=== PATIENT | female | born 1995 | race Caucasian/White ===

== ENCOUNTER 2018-01-11 20:29 | Emergency (ER) | payer MEDICAID, OTHER ==
[2018-01-11] MEDS ORDERED: TETANUS/DIPHTHERIA TOXOID [ADULT] 0.5 ML VIAL IM ONE (20:54)
[2018-01-11] MEDS ORDERED: OCTYL 2-CYANOACRYLATE 1 EACH TP ONE (20:54)
[2018-01-11] MEDS ORDERED: ACETAMINOPHEN EXTRA STRENGTH 500 MG TABLET ONE (21:51)
== END 2018-01-11 21:58 | disposition home or self-care (01) ==
LOC: EDH 20:29
DX: S61.214A Laceration without foreign body of right ring finger without damage to nail, initial encounter (principal); Z72.0 Tobacco use; W26.0XXA Contact with knife, initial encounter; Y93.89 Activity, other specified; Y92.89 Other specified places as the place of occurrence of the external cause; Y99.8 Other external cause status
CPT/HCPCS: 12041; 90471; 90714

== ENCOUNTER 2018-03-23 19:50 | Emergency (ER) | payer OTHER ==
[2018-03-23 20:23] LABS: APPEARANCE,URINE SL CLOUDY (CLEAR); BILIRUBIN,URINE SMALL (NEGATIVE); COLOR,URINE YELLOW (YELLOW); GLUCOSE, URINE (UA) NEGATIVE (NEGATIVE); KETONES,URINE NEGATIVE (NEGATIVE); LEUKOCYTE ESTERASE ,URINE TRACE (NEGATIVE); NITRATE,URINE NEGATIVE (NEGATIVE); OCCULT BLOOD,URINE LARGE (NEGATIVE); PH,URINE 7.5 (5.0-8.0); PROTEIN,URINE 100 (NEGATIVE)
[2018-03-23 20:33] LABS: BACTERIA,URINE Few /HPF (None Seen); MUCUS,URINE Moderate LPF (None Seen); SQUAMOUS EPITHELIAL CELL,UR Many /HPF (0-2)
[2018-03-23 20:34] LABS: HCG,QUAL RESULT NEGATIVE (NEGATIVE)
[2018-03-23] MEDS ORDERED: IBUPROFEN 400 MG TABLET ONE (20:52)
== END 2018-03-23 21:23 | disposition home or self-care (01) ==
LOC: EDH 19:50
DX: N39.0 Urinary tract infection, site not specified (principal); N83.299 Other ovarian cyst, unspecified side; Z72.0 Tobacco use
CPT/HCPCS: 81001; 81025

== ENCOUNTER 2019-08-22 18:04 | Inpatient (IN) | payer MEDICAID ==
[~2019-08-22] VITALS: Ht 152.4 cm; Wt 62.6 kg
[2019-08-22 19:11] LABS: APPEARANCE,URINE Clear (CLEAR); BILIRUBIN,URINE Negative (NEGATIVE); COLOR,URINE Yellow (YELLOW); GLUCOSE, URINE (UA) Negative (NEGATIVE); KETONES,URINE Negative (NEGATIVE); LEUKOCYTE ESTERASE ,URINE Small (NEGATIVE); NITRATE,URINE Negative (NEGATIVE); OCCULT BLOOD,URINE Moderate (NEGATIVE); PROTEIN,URINE Trace mg/dL (NEGATIVE)
[2019-08-22] MEDS ORDERED: LACTATED RINGERS 1000ML 1,000 ML IV PRN (19:39)
[2019-08-22] MEDS ORDERED: OXYTOCIN-LR 20 UNITS/1000 ML 1,000 ML IV SCH (19:45)
[2019-08-22 19:49] LABS: HEMATOCRIT 28.6 % (36-48); MEAN CORPUSCULAR HEMOGLOBIN 28.9 pg (27.0-33.0); MEAN CORPUSCULAR HGB CONC 35.4 g/dL (32.0-36.0); MEAN CORPUSCULAR VOLUME 81.7 fL (79-99); PLATELET COUNT (AUTO) 355 K/uL (130-400); RED CELL DISTRIBUTION WIDTH 13.4 % (11.0-15.5); WHITE BLOOD COUNT (AUTO) 12.4 K/uL (4.8-10.8)
[2019-08-22 20:12] LABS: ALBUMIN 2.4 g/dL (3.5-5.0); BILIRUBIN,TOTAL 0.2 mg/dL (0.2-1.0); CREATININE 0.5 mg/dL (0.5-1.5); TOTAL PROTEIN, SERUM 6.8 g/dL (6.0-8.3); URIC ACID 5.3 mg/dL (2.6-7.2)
[2019-08-22 20:16] LABS: POTASSIUM 2.6 mmol/L (3.5-5.1)
[2019-08-22 20:23] LABS: INR 0.92 (0.85-1.15); PARTIAL THROMBOPLASTIN TIME 26.8 SEC (26.3-35.5); PROTHROMBIN TIME 9.7 SEC (9.6-11.6)
[2019-08-22 20:25] LABS: RBC,URINE 0-1 /HPF (0-1)
[2019-08-22 20:26] LABS: BACTERIA,URINE Few /HPF (None Seen); SQUAMOUS EPITHELIAL CELL,UR Few /HPF (0-2)
[2019-08-22] MEDS ORDERED: MAGNESIUM 4GM PREMIX 100ML 100 ML IV PRN (21:15)
[2019-08-22] MEDS ORDERED: CALCIUM GLUCONATE 1 GM/10 ML VIAL IV PRN (21:15)
[2019-08-22] MEDS ORDERED: MAGNESIUM SULFATE 1,000 ML IV PRN (21:15)
[2019-08-22] MEDS ORDERED: HYDRALAZINE HCL 20 MG/ML VIAL ONE (21:26)
[2019-08-22] MEDS ORDERED: MAGNESIUM 4GM PREMIX 100ML 100 ML IV ONE (21:27)
[2019-08-22] MEDS: HYDRALAZINE HCL 20 MG/ML VIAL IV SCH ×2 (21:35→22:28)
[2019-08-22] MEDS ORDERED: POTASSIUM CHLORIDE 10% ELIXIR 20 MEQ/15 ML UDCUP PO PRN (21:45)
[2019-08-22] MEDS: PROMETHAZINE HCL 25 MG/ML 1ML AMPULE IM PRN (23:20)
[2019-08-22] MEDS: MEPERIDINE-PF 50 MG/ML SYG IVP PRN (23:25)
[2019-08-22] MEDS ORDERED: LIDOCAINE HCL-MPF 1% 2ML VIAL IV PRN (23:30)
[2019-08-23] MEDS ORDERED: POTASSIUM CHLORIDE 20MEQ/100ML 100 ML IV ONE ×2 (00:19→04:52)
[2019-08-23] MEDS: POTASSIUM CHLORIDE 20 MEQ ERTAB PO PRN ×3 (00:52→04:49)
[2019-08-23] MEDS ORDERED: ACETAMINOPHEN 325 MG TAB ONE (02:19)
[2019-08-23] MEDS: ACETAMINOPHEN 325 MG TAB PO PRN (05:17)
[2019-08-23] MEDS ORDERED: OXYTOCIN 10 USP UNITS/ML 20 UNIT in LACTATED RINGERS 1000ML 1,000 ML IV SCH (07:00)
[2019-08-23] MEDS: MEPERIDINE-PF 50 MG/ML SYG IVP PRN (08:38)
[2019-08-23] MEDS: PROMETHAZINE HCL 25 MG/ML 1ML AMPULE IM PRN (08:38)
[2019-08-23] MEDS ORDERED: LACTATED RINGERS 500 ML 500 ML IV PRN (11:00)
[2019-08-23] MEDS ORDERED: NALOXONE HCL 0.4 MG/1 ML ML IV PRN (11:00)
[2019-08-23] MEDS ORDERED: EPHEDRINE SULFATE 50 MG/ML AMPULE IVP PRN (11:00)
[2019-08-23] MEDS ORDERED: MISOPROSTOL 200 MCG TABLET ONE ×2 (13:10→13:53)
[2019-08-23] MEDS ORDERED: MEASLES/MUMPS/RUBELLA VACCINE, LIVE 0.5 ML/VIAL SQ PRN (13:30)
[2019-08-23] MEDS ORDERED: CALCIUM GLUCONATE 1 GM/10 ML VIAL IV PRN (13:30)
[2019-08-23] MEDS ORDERED: LACTATED RINGERS 1000ML 1,000 ML IV SCH (13:30)
[2019-08-23] MEDS ORDERED: WITCH HAZEL 1 PAD TP PRN (13:30)
[2019-08-23] MEDS ORDERED: DIPH,PERTUSS(ACELL),TET VAC/PF 0.5 ML VIAL IM PRN (13:30)
[2019-08-23] MEDS ORDERED: OXYTOCIN 10 USP UNITS/ML IV PRN (13:30)
[2019-08-23] MEDS ORDERED: MAGNESIUM SULFATE 1,000 ML IV PRN (13:30)
[2019-08-23] MEDS ORDERED: BENZOCAINE/LANOLIN/ALOE VERA 60 ML AEROSOL TP PRN (13:30)
[2019-08-23] MEDS ORDERED: MAGNESIUM 4GM PREMIX 100ML 100 ML IV PRN (13:30)
[2019-08-23] MEDS ORDERED: ACETAMINOPHEN 325 MG TAB PO PRN (13:30)
[2019-08-23] MEDS ORDERED: LANOLIN 30GM OINTMENT TP PRN (13:30)
[2019-08-23] MEDS ORDERED: LABETALOL HCL 100 MG TABLET ONE (16:42)
[2019-08-23 18:01] LABS: BASOPHILS % (AUTO) 0.1 % (0.0-5.0); HEMATOCRIT 27.5 % (36-48); LYMPHOCYTES % (AUTO) 7.5 % (21.0-51.0); MEAN CORPUSCULAR HEMOGLOBIN 28.3 pg (27.0-33.0); MEAN CORPUSCULAR HGB CONC 33.8 g/dL (32.0-36.0); MEAN CORPUSCULAR VOLUME 83.9 fL (79-99); MONOCYTES % (AUTO) 3.1 % (3.0-13.0); NEUTROPHILS % (AUTO) 89.3 % (40.0-77.0); PLATELET COUNT (AUTO) 364 K/uL (130-400); RED BLOOD CELL COUNT(AUTO) 3.28 MIL/uL (4.00-5.50); RED CELL DISTRIBUTION WIDTH 13.5 % (11.0-15.5); WHITE BLOOD COUNT (AUTO) 24.5 K/uL (4.8-10.8)
[2019-08-23] MEDS: IBUPROFEN 600 MG TABLET PO PRN (21:24)
[2019-08-23] MEDS: DOCUSATE SODIUM 100 MG CAP PO SCH (23:25)
[2019-08-24] MEDS: IBUPROFEN 600 MG TABLET PO PRN ×3 (03:53→18:29)
[2019-08-24 05:26] LABS: HEMATOCRIT 23.4 % (36-48); MEAN CORPUSCULAR HEMOGLOBIN 28.3 pg (27.0-33.0); MEAN CORPUSCULAR HGB CONC 33.8 g/dL (32.0-36.0); MEAN CORPUSCULAR VOLUME 83.5 fL (79-99); PLATELET COUNT (AUTO) 325 K/uL (130-400); RED CELL DISTRIBUTION WIDTH 13.8 % (11.0-15.5); WHITE BLOOD COUNT (AUTO) 14.3 K/uL (4.8-10.8)
[2019-08-24 06:10] LABS: HEPATITIS Bs ANTIGEN SCREEN P Negative (Negative)
[2019-08-24] MEDS ORDERED: POTASSIUM CHLORIDE 20 MEQ ERTAB PO PRN (08:45)
[2019-08-24] MEDS ORDERED: POTASSIUM CHLORIDE 10% ELIXIR 20 MEQ/15 ML UDCUP PO PRN (08:45)
[2019-08-24] MEDS ORDERED: POTASSIUM CHLORIDE 20MEQ/100ML 100 ML IV PRN (08:45)
[2019-08-24] MEDS ORDERED: LIDOCAINE HCL-MPF 1% 2ML VIAL IV PRN (08:45)
[2019-08-24] MEDS: LABETALOL HCL 200 MG TABLET PO SCH ×3 (08:58→21:24)
[2019-08-24] MEDS: POTASSIUM CHLORIDE 20 MEQ ERTAB PO PRN ×3 (08:58→13:15)
[2019-08-24 09:11] LABS: ALBUMIN 1.9 g/dL (3.5-5.0); BILIRUBIN,DIRECT 0.1 mg/dL (0.0-0.3); BILIRUBIN,TOTAL 0.2 mg/dL (0.2-1.0); TOTAL PROTEIN, SERUM 5.7 g/dL (6.0-8.3)
--- NOTE | 2019-08-24 15:00 | NUR ---
ASSISTED PATIENT WITH PERICARE. LOOSE STOOL NOTED ON PAD, PT STATES WITH MOVEMENT SHE WILL HAVE A BOWEL MOVEMENT. VULVA APPEARS SWOLLEN. COLD PERIPAD OFFERED, PT DECLINED.
[2019-08-24 15:11] VITALS: BP 137/89
--- NOTE | 2019-08-24 15:30 | NUR ---
ASSISTED PT TO RESTROOM. NO C/O DIZZINESS REPORTED. YELLOW/GREEN LOOSE STOOL NOTED IN TOILET. PT TOLERATED AMBULATING.
[2019-08-24 20:00] VITALS: BP 149/91
[2019-08-24] MEDS: DOCUSATE SODIUM 100 MG CAP PO SCH (20:29)
[2019-08-24] MEDS: LACTATED RINGERS 1000ML 1,000 ML IV SCH (21:15)
[2019-08-24 23:14] VITALS: BP 148/94
[2019-08-25] VITALS (11 sets, daily range): BP systolic 140–164; BP diastolic 81–102
[2019-08-25] MEDS: IBUPROFEN 600 MG TABLET PO PRN ×3 (03:53→20:41)
[2019-08-25] MEDS: LACTATED RINGERS 1000ML 1,000 ML IV SCH (05:15)
[2019-08-25] MEDS ORDERED: FLU VACC QS2019-20 36MOS UP/PF 60 MCG/0.5 ML ML IM ONE (06:15)
[2019-08-25] MEDS ORDERED: DIPH,PERTUSS(ACELL),TET VAC/PF 0.5 ML VIAL IM ONE (06:15)
[2019-08-25] MEDS ORDERED: FLU VACC QS2019-20 36MOS UP/PF 60 MCG/0.5 ML ML IM SCH ×2 (06:31→06:53)
[2019-08-25] MEDS ORDERED: DIPH,PERTUSS(ACELL),TET VAC/PF 0.5 ML VIAL IM SCH (06:33)
[2019-08-25 08:13] LABS: HEMATOCRIT 29.1 % (36-48); MEAN CORPUSCULAR HEMOGLOBIN 28.3 pg (27.0-33.0); MEAN CORPUSCULAR HGB CONC 33.8 g/dL (32.0-36.0); MEAN CORPUSCULAR VOLUME 83.7 fL (79-99); PLATELET COUNT (AUTO) 310 K/uL (130-400); RED BLOOD CELL COUNT(AUTO) 3.48 MIL/uL (4.00-5.50); WHITE BLOOD COUNT (AUTO) 10.7 K/uL (4.8-10.8)
[2019-08-25] MEDS: POTASSIUM CHLORIDE 20 MEQ ERTAB PO PRN ×2 (08:24→18:36)
[2019-08-25] MEDS: DOCUSATE SODIUM 100 MG CAP PO SCH (08:24)
[2019-08-25] MEDS: LABETALOL HCL 200 MG TABLET PO SCH ×2 (08:25→20:42)
[2019-08-26] VITALS (14 sets, daily range): BP systolic 134–188; BP diastolic 79–118
--- NOTE | 2019-08-26 06:55 | NUR ---
STATUS FUENTES MILES CNM CALLED AND WAS GIVEN UPDATE ON PATIENT'S STATUS, B/P CHANGES, SHE WILL SPEAK TO DR MONTIEL Addendum: 08/26/19 at 0700 by DANNI SANTA LVN Amended: Links added.
[2019-08-26] MEDS: POTASSIUM CHLORIDE 20 MEQ ERTAB PO PRN (08:08)
[2019-08-26] MEDS: DOCUSATE SODIUM 100 MG CAP PO SCH ×2 (08:09→19:52)
[2019-08-26] MEDS: IBUPROFEN 600 MG TABLET PO PRN ×2 (08:10→14:37)
--- NOTE | 2019-08-26 08:15 | NUR ---
Viktor MILES CNM ROUNDED AND ORDERS GIVEN TO POTASSIUM TO BE GIVEN 40MGS AT 1400 AND NOT PER PROTOCOL. FUENTES WAS MADE AWARE OF FIRST DOSE ALREADY GIVEN FOR 20MEQ AT 0800. NEW LABS ORDERED FOR PEW TO BE REPEATED AND TRANDATE WAS CHANGED FROM 200MGS BID TO 300MGS BID.
[2019-08-26] MEDS ORDERED: LABETALOL HCL 200 MG TABLET PO SCH (09:00)
--- NOTE | 2019-08-26 09:00 | NUR ---
JOVITA LYNN NP ROUNDED AND ORDERS GIVEN FOR TREATING ELEVATED BP AND NEW LABS ORDERED.
[2019-08-26] MEDS: LABETALOL HCL 100 MG TABLET PO SCH ×2 (09:16→19:52)
[2019-08-26] MEDS ORDERED: CEFTRIAXONE SODIUM 1 GM IVP SCH (11:15)
[2019-08-26] MEDS ORDERED: HYDRALAZINE HCL 20 MG/ML VIAL IV PRN (11:15)
[2019-08-26] MEDS ORDERED: POTASSIUM CHLORIDE 20 MEQ ERTAB PO SCH (14:00)
[2019-08-26] MEDS: HYDRALAZINE HCL 25 MG TABLET PO PRN ×2 (16:46→21:21)
[2019-08-26] MEDS: ACETAMINOPHEN 325 MG TAB PO PRN ×2 (16:57→21:23)
[2019-08-26 17:27] LABS: BASOPHILS % (AUTO) 0.5 % (0.0-5.0); EOSINOPHILS % (AUTO) 1.2 % (0.0-8.0); HEMATOCRIT 33.5 % (36-48); LYMPHOCYTES % (AUTO) 22.2 % (21.0-51.0); MEAN CORPUSCULAR HEMOGLOBIN 28.1 pg (27.0-33.0); MEAN CORPUSCULAR HGB CONC 33.8 g/dL (32.0-36.0); MEAN CORPUSCULAR VOLUME 83.1 fL (79-99); NEUTROPHILS % (AUTO) 71.1 % (40.0-77.0); PLATELET COUNT (AUTO) 381 K/uL (130-400); RED BLOOD CELL COUNT(AUTO) 4.04 MIL/uL (4.00-5.50); RED CELL DISTRIBUTION WIDTH 14.1 % (11.0-15.5); WHITE BLOOD COUNT (AUTO) 11.9 K/uL (4.8-10.8)
[2019-08-26 17:29] LABS: ALBUMIN 2.7 g/dL (3.5-5.0); BILIRUBIN,TOTAL 0.2 mg/dL (0.2-1.0); CREATININE 0.7 mg/dL (0.5-1.5); POTASSIUM 4.5 mmol/L (3.5-5.1); TOTAL PROTEIN, SERUM 7.5 g/dL (6.0-8.3); URIC ACID 3.9 mg/dL (2.6-7.2)
[2019-08-26 17:32] LABS: INR 0.86 (0.85-1.15); PARTIAL THROMBOPLASTIN TIME 26.8 SEC (26.3-35.5); PROTHROMBIN TIME 9.1 SEC (9.6-11.6)
[2019-08-27 03:20] VITALS: BP 140/83
[2019-08-27 06:25] LABS: BASOPHILS % (AUTO) 0.6 % (0.0-5.0); EOSINOPHILS % (AUTO) 1.7 % (0.0-8.0); HEMATOCRIT 30.5 % (36-48); LYMPHOCYTES % (AUTO) 23.1 % (21.0-51.0); MEAN CORPUSCULAR HEMOGLOBIN 28.7 pg (27.0-33.0); MEAN CORPUSCULAR HGB CONC 34.6 g/dL (32.0-36.0); MEAN CORPUSCULAR VOLUME 83.1 fL (79-99); MONOCYTES % (AUTO) 5.7 % (3.0-13.0); NEUTROPHILS % (AUTO) 68.9 % (40.0-77.0); PLATELET COUNT (AUTO) 324 K/uL (130-400); RED BLOOD CELL COUNT(AUTO) 3.67 MIL/uL (4.00-5.50); RED CELL DISTRIBUTION WIDTH 14.1 % (11.0-15.5); WHITE BLOOD COUNT (AUTO) 10.7 K/uL (4.8-10.8)
[2019-08-27 06:42] LABS: CREATININE 0.6 mg/dL (0.5-1.5); POTASSIUM 3.7 mmol/L (3.5-5.1)
[2019-08-27 07:40] VITALS: BP 158/97
[2019-08-27] MEDS: HYDRALAZINE HCL 25 MG TABLET PO PRN (09:04)
[2019-08-27] MEDS: DOCUSATE SODIUM 100 MG CAP PO SCH (09:04)
[2019-08-27] MEDS: LABETALOL HCL 100 MG TABLET PO SCH (09:05)
--- NOTE | 2019-08-27 09:35 | NUR ---
DR. SMITH ROUNDED AND INDICATED WOULD KEEP PATIENT FOR AN ADDITIONAL DAY, BUT IF HOSPITALIST INDICATES PATIENT CAN GO HOME, SHE CAN BE DISCHARGED.
[2019-08-27 10:10] VITALS: BP 147/96
--- NOTE | 2019-08-27 10:15 | NUR ---
JOVITA LYNN NP ROUNDED AND DISCHARGED PATIENT TO HOME ON APRESOLINE. PATIENT IS TO CONTINUE APRESOLINE AND TRANDATE ORDERED AND FOLLOW UP WITH HER PRIMARY CARE DOCTOR IN ONE WEEK FOR FURTHER ASSESSMENT.
[2019-08-27] MEDS ORDERED: HYDR-4153 PO (10:19)
--- NOTE | 2019-08-27 11:00 | NUR ---
PATEINT WAS GIVEN DISCHARGE INSTRUCTIONS AND SALINE LOCK WAS REMOVED AT THIS TIME. IV SITE IS WNL WITH NO REDNESS OR EDEMA TO SITE. PATIENT'S SPOUSE DID BRING PATIENT'S LABETALOL REQUESTED BY Viktor MILES CNM TO MAKE SURE PATIENT HAD MEDS PRIOR TO DISCHARGE TO HOME. PATIENT DENIES ANY FURTHER HEADACHES AND BP DONE PRIOR TO DISCHARGE WAS 147/96. SCRIPT FOR APRESOLINE WAS TRANSMITTED TO [facility] PER JOVITA LYNN NP.
--- NOTE | 2019-08-27 11:50 | NUR ---
BABY WAS DISCHARGED AND PATIENT WAS TAKEN VIA W/C CARRYING BABY IN ARMS AND WAS DISCHARGED TO SPOUSE IN STABLE CONDITION.
== END 2019-08-27 11:50 | disposition home or self-care (01) | DRG 560 ==
LOC: EDH 18:04 → LDH 18:21 → OBSVTOIN 18:21 → WSH 08-23 20:01
PROVIDERS: ADMIT Obstetrics & Gynecology; ATTEND Obstetrics & Gynecology
PROC: 10E0XZZ Delivery of Products of Conception, External Approach (ICD-10-PCS; principal; 2019-08-22)
PROC: 0HQ9XZZ Repair Perineum Skin, External Approach (ICD-10-PCS; 2019-08-22)
PROC: 3E0R3BZ Introduction of Anesthetic Agent into Spinal Canal, Percutaneous Approach (ICD-10-PCS; 2019-08-22)
PROC: 00HU33Z Insertion of Infusion Device into Spinal Canal, Percutaneous Approach (ICD-10-PCS; 2019-08-22)
PROC: 10907ZC Drainage of Amniotic Fluid, Therapeutic from Products of Conception, Via Natural or Artificial Opening (ICD-10-PCS; 2019-08-22)
PROC: 3E0234Z Introduction of Serum, Toxoid and Vaccine into Muscle, Percutaneous Approach (ICD-10-PCS; 2019-08-23)
PROC: 30233N1 Transfusion of Nonautologous Red Blood Cells into Peripheral Vein, Percutaneous Approach (ICD-10-PCS; 2019-08-24)
PROC: 3E02340 Introduction of Influenza Vaccine into Muscle, Percutaneous Approach (ICD-10-PCS; 2019-08-25)
DX: O13.4 Gestational [pregnancy-induced] hypertension without significant proteinuria, complicating childbirth (principal); Z37.0 Single live birth; E87.6 Hypokalemia; Z3A.39 39 weeks gestation of pregnancy; O70.0 First degree perineal laceration during delivery; O42.02 Full-term premature rupture of membranes, onset of labor within 24 hours of rupture; O99.284 Endocrine, nutritional and metabolic diseases complicating childbirth; Z71.6 Tobacco abuse counseling; Z82.5 Family history of asthma and other chronic lower respiratory diseases; O62.2 Other uterine inertia; O69.81X0 Labor and delivery complicated by cord around neck, without compression, not applicable or unspecified; Z23 Encounter for immunization; Z79.899 Other long term (current) drug therapy; Z80.8 Family history of malignant neoplasm of other organs or systems; Z82.49 Family history of ischemic heart disease and other diseases of the circulatory system; Z87.891 Personal history of nicotine dependence; Z83.3 Family history of diabetes mellitus
CPT/HCPCS: 36415; 80048; 80053; 80076; 81001; 82044; 82120; 84132; 84550; 85025; 85027; 85384; 85610; 85730; 86592; 86850; 86900; 86901; 86922; 87340; 88307; 90715; A4314; G0378; J0360; J0696; J2175; J2550; J2590; J3475; J3480; J3490; J7120; P9016

== ENCOUNTER 2022-05-01 22:42 | Inpatient (IN) | payer MEDICAID, OTHER ==
[~2022-05-01] VITALS: Ht 152.4 cm; Wt 46.3 kg
[~2022-05-01 22:42] MED LIST: HYDR-4153 PO
[2022-05-02] MEDS ORDERED: HYDROCODONE/ACETAMINOPHEN 10/325 MG TAB PO ONE
[2022-05-02 00:24] LABS: BASOPHILS % (AUTO) 0.4 % (0.0-5.0); EOSINOPHILS % (AUTO) 1.6 % (0.0-8.0); HEMATOCRIT 39.5 % (36-48); LYMPHOCYTES % (AUTO) 40.9 % (21.0-51.0); MEAN CORPUSCULAR HGB CONC 33.2 g/dL (32.0-36.0); MEAN CORPUSCULAR VOLUME 81.4 fL (79-99); MONOCYTES % (AUTO) 8.7 % (3.0-13.0); NEUTROPHILS % (AUTO) 48.2 % (40.0-77.0); PLATELET COUNT (AUTO) 290 K/uL (130-400); RED BLOOD CELL COUNT(AUTO) 4.85 MIL/uL (4.00-5.50); RED CELL DISTRIBUTION WIDTH 13.5 % (11.0-15.5); WHITE BLOOD COUNT (AUTO) 9.3 K/uL (4.8-10.8)
[2022-05-02 00:39] LABS: CREATININE 0.7 mg/dL (0.5-1.5)
[2022-05-02] MEDS ORDERED: POTASSIUM BICARB/CIT AC 25 MEQ TABLET.EFF ONE (02:09)
[2022-05-02] MEDS ORDERED: POTASSIUM CHLORIDE 10% ELIXIR 20 MEQ/15 ML UDCUP PO ONE (02:30)
[2022-05-02] MEDS ORDERED: HYDRALAZINE 20MG/ML VIAL ONE (02:35)
[2022-05-02] MEDS ORDERED: HYDRALAZINE 20MG/ML VIAL IV ONE ×2 (03:00)
[2022-05-02] MEDS ORDERED: 0.9%NACL 1000ML 1,000 ML IV ONE (03:00)
[2022-05-02] MEDS ORDERED: MAG/ALUM/SIMETH 30 ML UDCUP PO PRN (03:30)
[2022-05-02] MEDS ORDERED: HYDROCODONE/ACETAMINOPHEN 5/325 MG TAB PO ONE (03:30)
[2022-05-02] MEDS ORDERED: POTASSIUM CHLORIDE 10% ELIXIR 20 MEQ/15 ML UDCUP PO PRN (03:30)
[2022-05-02] MEDS ORDERED: HYDROCODONE/ACETAMINOPHEN 5/325 MG TAB PO PRN (03:30)
[2022-05-02] MEDS ORDERED: ACETAMINOPHEN 325 MG TAB PO PRN ×2 (03:30)
[2022-05-02] MEDS ORDERED: POTASSIUM CHLORIDE 20MEQ/100ML 100 ML IV PRN (03:30)
[2022-05-02] MEDS ORDERED: LACTULOSE 20 GM/30 ML UDCUP PO PRN (03:30)
[2022-05-02] MEDS ORDERED: KCL 20 MEQ ERTAB PO PRN (03:30)
[2022-05-02] MEDS ORDERED: LIDOCAINE HCL-MPF 1% 2ML VIAL IJ PRN (03:30)
[2022-05-02] MEDS ORDERED: 0.9%NACL 1000ML 1,000 ML IV SCH (03:30)
[2022-05-02] MEDS ORDERED: HYDRALAZINE 20MG/ML VIAL IV PRN (03:30)
[2022-05-02] MEDS ORDERED: TRAZ-187 PO (03:52)
[2022-05-02] MEDS ORDERED: DULO60CA45 PO (03:52)
[2022-05-02] MEDS ORDERED: GABA100C PO (03:52)
[2022-05-02] MEDS: DIPHENHYDRAMINE HCL 25 MG CAPSULE PO PRN (04:09)
[2022-05-02 04:39] LABS: APPEARANCE,URINE CLEAR (CLEAR); BILIRUBIN,URINE NEGATIVE (NEGATIVE); COLOR,URINE YELLOW (YELLOW); GLUCOSE, URINE (UA) NEGATIVE (NEGATIVE); KETONES,URINE 5 mg/dL (NEGATIVE); LEUKOCYTE ESTERASE ,URINE NEGATIVE (NEGATIVE); NITRATE,URINE NEGATIVE (NEGATIVE); OCCULT BLOOD,URINE NEGATIVE (NEGATIVE); PROTEIN,URINE NEGATIVE (NEGATIVE); UROBILINOGEN,URINE 0.2 mg/dL (0.2-1.0)
[2022-05-02 04:56] LABS: AMPHET/METH SCREEN,URINE NEGATIVE (NEGATIVE); BARBITURATE SCREEN, URINE NEGATIVE (NEGATIVE); BENZODIAZEPINES SCREEN,URINE NEGATIVE (NEGATIVE); CANNABINOID SCREEN,URINE POSITIVE (NEGATIVE); COCAINE SCREEN,URINE POSITIVE (NEGATIVE); OPIATE SCREEN,URINE NEGATIVE (NEGATIVE); PHENCYCLIDINE SCREEN,URINE NEGATIVE (NEGATIVE)
[2022-05-02] MEDS: MORPHINE 4 MG SYG IV PRN ×2 (05:56→17:35)
[2022-05-02 08:55] LABS: BASOPHILS % (AUTO) 0.3 % (0.0-5.0); CREATININE 0.5 mg/dL (0.5-1.5); EOSINOPHILS % (AUTO) 1.4 % (0.0-8.0); HEMATOCRIT 40.3 % (36-48); LYMPHOCYTES % (AUTO) 34.6 % (21.0-51.0); MEAN CORPUSCULAR HEMOGLOBIN 26.5 pg (27.0-33.0); MEAN CORPUSCULAR HGB CONC 32.8 g/dL (32.0-36.0); MEAN CORPUSCULAR VOLUME 80.9 fL (79-99); MONOCYTES % (AUTO) 7.2 % (3.0-13.0); NEUTROPHILS % (AUTO) 56.2 % (40.0-77.0); PLATELET COUNT (AUTO) 308 K/uL (130-400); RED BLOOD CELL COUNT(AUTO) 4.98 MIL/uL (4.00-5.50); RED CELL DISTRIBUTION WIDTH 13.8 % (11.0-15.5); WHITE BLOOD COUNT (AUTO) 11.7 K/uL (4.8-10.8)
[2022-05-02] MEDS: FAMOTIDINE 20MG TAB PO SCH ×2 (09:35→19:54)
[2022-05-02] MEDS: LISINOPRIL 10 MG TABLET PO SCH (09:35)
[2022-05-02 12:00] VITALS: BP 145/95
[2022-05-02] MEDS: HYDRALAZINE 25MG TABLET PO SCH ×2 (15:01→19:54)
[2022-05-02 16:00] VITALS: BP 127/90
[2022-05-02] MEDS: GABAPENTIN 100 MG CAPSULE PO SCH (19:54)
[2022-05-02] MEDS: TOPIRAMATE 25 MG TABLET PO SCH (19:54)
[2022-05-02] MEDS: TRAZODONE HCL 100 MG TABLET PO SCH (19:54)
[2022-05-02] MEDS ORDERED: HYDROCODONE/ACETAMINOPHEN 5/325 MG TAB ONE (20:03)
[2022-05-02 21:37] VITALS: BP 134/91
[2022-05-02] MEDS: MORPHINE 2 MG SYG IV PRN (21:53)
[2022-05-03 00:08] VITALS: BP 127/85
[2022-05-03] MEDS: MORPHINE 2 MG SYG IV PRN ×2 (03:56→12:10)
[2022-05-03 04:28] VITALS: BP 146/83
[2022-05-03] MEDS: HYDROCODONE/ACETAMINOPHEN 5/325 MG TAB PO PRN ×3 (05:50→19:43)
[2022-05-03 06:53] LABS: BASOPHILS % (AUTO) 0.3 % (0.0-5.0); EOSINOPHILS % (AUTO) 1.4 % (0.0-8.0); HEMATOCRIT 37.4 % (36-48); LYMPHOCYTES % (AUTO) 35.7 % (21.0-51.0); MEAN CORPUSCULAR HEMOGLOBIN 26.3 pg (27.0-33.0); MEAN CORPUSCULAR HGB CONC 31.6 g/dL (32.0-36.0); MEAN CORPUSCULAR VOLUME 83.3 fL (79-99); MONOCYTES % (AUTO) 6.7 % (3.0-13.0); NEUTROPHILS % (AUTO) 55.6 % (40.0-77.0); PLATELET COUNT (AUTO) 264 K/uL (130-400); RED BLOOD CELL COUNT(AUTO) 4.49 MIL/uL (4.00-5.50); RED CELL DISTRIBUTION WIDTH 13.7 % (11.0-15.5); WHITE BLOOD COUNT (AUTO) 9.1 K/uL (4.8-10.8)
[2022-05-03 07:03] LABS: CREATININE 0.7 mg/dL (0.5-1.5); POTASSIUM 3.5 mmol/L (3.5-5.1)
[2022-05-03 08:00] VITALS: BP 140/102
[2022-05-03] MEDS: FAMOTIDINE 20MG TAB PO SCH (09:18)
[2022-05-03] MEDS: LISINOPRIL 10 MG TABLET PO SCH (09:19)
[2022-05-03] MEDS: GABAPENTIN 100 MG CAPSULE PO SCH ×2 (09:19→19:44)
[2022-05-03] MEDS: DULOXETINE HCL 30 MG CAP PO SCH (09:19)
[2022-05-03 11:51] VITALS: BP 148/104
[2022-05-03] MEDS: PANTOPRAZOLE 40 MG TAB DR PO SCH (13:49)
[2022-05-03] MEDS: ACETAMINOPHEN 500 MG TABLET PO SCH (13:50)
[2022-05-03] MEDS: HYDRALAZINE 25MG TABLET PO SCH (13:50)
[2022-05-03 16:00] VITALS: BP 134/86
[2022-05-03] MEDS: KETOROLAC 15MG/ML VIAL (15MG/ML) IV PRN ×2 (17:53→23:22)
[2022-05-03] MEDS: TOPIRAMATE 25 MG TABLET PO SCH (19:44)
[2022-05-03] MEDS: TRAZODONE HCL 100 MG TABLET PO SCH (19:44)
[2022-05-03 20:00] VITALS: BP 152/98
[2022-05-04] VITALS (7 sets, daily range): BP systolic 134–167; BP diastolic 70–106
[2022-05-04] MEDS: ACETAMINOPHEN 500 MG TABLET PO SCH ×2 (00:16→12:21)
[2022-05-04] MEDS: HYDROCODONE/ACETAMINOPHEN 5/325 MG TAB PO PRN ×2 (06:06→10:16)
[2022-05-04 06:11] LABS: BASOPHILS % (AUTO) 0.4 % (0.0-5.0); EOSINOPHILS % (AUTO) 2.1 % (0.0-8.0); HEMATOCRIT 34.6 % (36-48); LYMPHOCYTES % (AUTO) 52.8 % (21.0-51.0); MEAN CORPUSCULAR HEMOGLOBIN 26.8 pg (27.0-33.0); MEAN CORPUSCULAR HGB CONC 32.9 g/dL (32.0-36.0); MEAN CORPUSCULAR VOLUME 81.4 fL (79-99); NEUTROPHILS % (AUTO) 36.7 % (40.0-77.0); PLATELET COUNT (AUTO) 241 K/uL (130-400); RED BLOOD CELL COUNT(AUTO) 4.25 MIL/uL (4.00-5.50); RED CELL DISTRIBUTION WIDTH 13.3 % (11.0-15.5); WHITE BLOOD COUNT (AUTO) 5.6 K/uL (4.8-10.8)
[2022-05-04 06:49] LABS: BILIRUBIN,TOTAL 0.2 mg/dL (0.2-1.0); CREATININE 0.6 mg/dL (0.5-1.5); MAGNESIUM 1.9 mg/dL (1.80-2.40); POTASSIUM 3.5 mmol/L (3.5-5.1); TOTAL PROTEIN, SERUM 5.8 g/dL (6.0-8.3)
[2022-05-04] MEDS: KETOROLAC 15MG/ML VIAL (15MG/ML) IV PRN ×3 (08:55→23:20)
[2022-05-04] MEDS: LISINOPRIL 10 MG TABLET PO SCH (08:56)
[2022-05-04] MEDS: GABAPENTIN 100 MG CAPSULE PO SCH ×2 (08:56→20:54)
[2022-05-04] MEDS: HYDRALAZINE 25MG TABLET PO SCH ×2 (08:56→20:54)
[2022-05-04] MEDS: DULOXETINE HCL 30 MG CAP PO SCH (08:57)
[2022-05-04] MEDS ORDERED: POLYETHYLENE GLYCOL 3350 17 GM POWD.PACK PO SCH (11:30)
[2022-05-04] MEDS: PANTOPRAZOLE 40 MG TAB DR PO SCH (12:20)
[2022-05-04] MEDS: DOCUSATE SODIUM 100 MG CAP PO SCH ×2 (12:20→20:55)
[2022-05-04] MEDS: ACETAMINOPHEN WITH CODEINE 1 TAB TAB PO PRN ×2 (13:16→20:55)
[2022-05-04] MEDS: ONDANSETRON 4MG INJ IV PRN ×2 (13:19→21:10)
[2022-05-04] MEDS: DIPHENHYDRAMINE HCL 25 MG CAPSULE PO PRN (15:17)
[2022-05-04] MEDS: TOPIRAMATE 25 MG TABLET PO SCH (20:54)
[2022-05-04] MEDS: TRAZODONE HCL 100 MG TABLET PO SCH (20:56)
[2022-05-05 05:52] VITALS: BP 119/76
[2022-05-05 06:42] LABS: BASOPHILS % (AUTO) 0.5 % (0.0-5.0); EOSINOPHILS % (AUTO) 2.3 % (0.0-8.0); HEMATOCRIT 35.8 % (36-48); LYMPHOCYTES % (AUTO) 46.8 % (21.0-51.0); MEAN CORPUSCULAR HEMOGLOBIN 26.2 pg (27.0-33.0); MEAN CORPUSCULAR HGB CONC 31.8 g/dL (32.0-36.0); MEAN CORPUSCULAR VOLUME 82.3 fL (79-99); MONOCYTES % (AUTO) 8.8 % (3.0-13.0); NEUTROPHILS % (AUTO) 41.4 % (40.0-77.0); PLATELET COUNT (AUTO) 231 K/uL (130-400); RED BLOOD CELL COUNT(AUTO) 4.35 MIL/uL (4.00-5.50); RED CELL DISTRIBUTION WIDTH 13.3 % (11.0-15.5); WHITE BLOOD COUNT (AUTO) 5.7 K/uL (4.8-10.8)
[2022-05-05] MEDS: KETOROLAC 15MG/ML VIAL (15MG/ML) IV PRN ×2 (06:46→12:52)
[2022-05-05 07:02] LABS: BILIRUBIN,TOTAL 0.2 mg/dL (0.2-1.0); CREATININE 0.7 mg/dL (0.5-1.5); POTASSIUM 3.6 mmol/L (3.5-5.1); TOTAL PROTEIN, SERUM 5.6 g/dL (6.0-8.3)
[2022-05-05 08:00] VITALS: BP 143/84
[2022-05-05] MEDS: DULOXETINE HCL 30 MG CAP PO SCH (08:27)
[2022-05-05] MEDS: GABAPENTIN 100 MG CAPSULE PO SCH (08:27)
[2022-05-05] MEDS: DOCUSATE SODIUM 100 MG CAP PO SCH (08:28)
[2022-05-05] MEDS: HYDRALAZINE 25MG TABLET PO SCH (08:28)
[2022-05-05] MEDS: LISINOPRIL 10 MG TABLET PO SCH (08:28)
[2022-05-05] MEDS: ACETAMINOPHEN WITH CODEINE 1 TAB TAB PO PRN (08:28)
[2022-05-05] MEDS: ONDANSETRON 4MG INJ IV PRN (10:03)
[2022-05-05] MEDS ORDERED: HYDR-4153 PO (10:14)
[2022-05-05] MEDS ORDERED: ACET-2079 PO (10:14)
[2022-05-05] MEDS ORDERED: LISI10TA24 PO (10:14)
[2022-05-05 11:39] VITALS: BP 140/85
== END 2022-05-05 13:20 | disposition home or self-care (01) | DRG 312 ==
LOC: EDH 22:42 → OBSVTOIN 22:43 → EDHIP 22:43 → EEVIPCON 22:43 → 4AH 05-02 12:02
PROVIDERS: ADMIT Internal Medicine; ATTEND Internal Medicine
DX: R55 Syncope and collapse (principal); S06.0X9A Concussion with loss of consciousness of unspecified duration, initial encounter; I16.1 Hypertensive emergency; F43.10 Post-traumatic stress disorder, unspecified; F14.10 Cocaine abuse, uncomplicated; G43.909 Migraine, unspecified, not intractable, without status migrainosus; F41.1 Generalized anxiety disorder; F17.210 Nicotine dependence, cigarettes, uncomplicated; Z20.822 Contact with and (suspected) exposure to COVID-19; I10 Essential (primary) hypertension; X58.XXXA Exposure to other specified factors, initial encounter; Y93.89 Activity, other specified; Y92.89 Other specified places as the place of occurrence of the external cause; Y99.8 Other external cause status
CPT/HCPCS: 36415; 70450; 70486; 72125; 76770; 80048; 80053; 80305; 81003; 82550; 83735; 83874; 84484; 84703; 85025; 87635; 93005; 93306; 93356; 93975; G0378; J0360; J1885; J2270; J2405; J7030; Q0163

== ENCOUNTER 2022-05-08 20:56 | Emergency (ER) | payer OTHER ==
[~2022-05-08 20:56] MED LIST changes: +ACET-2079 PO; +DULO60CA45 PO; +GABA100C PO; +LISI10TA24 PO; +TRAZ-187 PO
[2022-05-08 21:20] LABS: BASOPHILS % (AUTO) 0.5 % (0.0-5.0); EOSINOPHILS % (AUTO) 1.1 % (0.0-8.0); HEMATOCRIT 36.8 % (36-48); LYMPHOCYTES % (AUTO) 37.9 % (21.0-51.0); MEAN CORPUSCULAR HEMOGLOBIN 26.4 pg (27.0-33.0); MEAN CORPUSCULAR HGB CONC 32.6 g/dL (32.0-36.0); MEAN CORPUSCULAR VOLUME 81.1 fL (79-99); MONOCYTES % (AUTO) 7.4 % (3.0-13.0); NEUTROPHILS % (AUTO) 52.8 % (40.0-77.0); PLATELET COUNT (AUTO) 256 K/uL (130-400); RED BLOOD CELL COUNT(AUTO) 4.54 MIL/uL (4.00-5.50); RED CELL DISTRIBUTION WIDTH 13.4 % (11.0-15.5); WHITE BLOOD COUNT (AUTO) 6.6 K/uL (4.8-10.8)
[2022-05-08 21:29] LABS: CREATININE 0.6 mg/dL (0.5-1.5); POTASSIUM 3.3 mmol/L (3.5-5.1)
[2022-05-08 21:38] LABS: ALBUMIN 3.8 g/dL (3.5-5.0); BILIRUBIN,TOTAL 0.2 mg/dL (0.2-1.0); TOTAL PROTEIN, SERUM 6.8 g/dL (6.0-8.3)
[2022-05-08] MEDS ORDERED: NIFEDIPINE 10 MG CAP PO ONE (22:30)
[2022-05-09 00:56] LABS: AMPHET/METH SCREEN,URINE NEGATIVE (NEGATIVE); BARBITURATE SCREEN, URINE NEGATIVE (NEGATIVE); BENZODIAZEPINES SCREEN,URINE NEGATIVE (NEGATIVE); CANNABINOID SCREEN,URINE NEGATIVE (NEGATIVE); COCAINE SCREEN,URINE NEGATIVE (NEGATIVE); OPIATE SCREEN,URINE POSITIVE (NEGATIVE); PHENCYCLIDINE SCREEN,URINE NEGATIVE (NEGATIVE)
[2022-05-09] MEDS ORDERED: NIFEDIPINE 10 MG CAP PO ONE (01:00)
[2022-05-09] MEDS ORDERED: HYDRALAZINE 20MG/ML VIAL IV ONE (02:00)
[2022-05-09] MEDS ORDERED: MORPHINE 2 MG SYG IVP ONE (02:00)
[2022-05-09 03:06] VITALS: BP 156/95
[2022-05-09] MEDS ORDERED: NIFE10 PO (03:22)
== END 2022-05-09 04:06 | disposition home or self-care (01) ==
LOC: EDH 20:56
DX: I16.1 Hypertensive emergency (principal); Z79.899 Other long term (current) drug therapy
CPT/HCPCS: 36415; 71045; 80053; 80305; 84484; 84703; 85025; 93005; 96374; 96375; 99285; J0360

== ENCOUNTER 2022-05-28 21:46 | Emergency (ER) | payer OTHER ==
[~2022-05-28] VITALS: Ht 152.4 cm; Wt 47.6 kg
[~2022-05-28 21:46] MED LIST changes: +NIFE10 PO
[2022-05-28 22:18] LABS: BASOPHILS % (AUTO) 0.4 % (0.0-5.0); EOSINOPHILS % (AUTO) 1.1 % (0.0-8.0); HEMATOCRIT 38.6 % (36-48); LYMPHOCYTES % (AUTO) 34.7 % (21.0-51.0); MEAN CORPUSCULAR HEMOGLOBIN 26.6 pg (27.0-33.0); MEAN CORPUSCULAR HGB CONC 32.9 g/dL (32.0-36.0); MEAN CORPUSCULAR VOLUME 80.9 fL (79-99); MONOCYTES % (AUTO) 5.7 % (3.0-13.0); NEUTROPHILS % (AUTO) 57.8 % (40.0-77.0); PLATELET COUNT (AUTO) 283 K/uL (130-400); RED BLOOD CELL COUNT(AUTO) 4.77 MIL/uL (4.00-5.50); RED CELL DISTRIBUTION WIDTH 13.4 % (11.0-15.5); WHITE BLOOD COUNT (AUTO) 7.2 K/uL (4.8-10.8)
[2022-05-28 22:21] LABS: APPEARANCE,URINE CLEAR (CLEAR); BILIRUBIN,URINE NEGATIVE (NEGATIVE); COLOR,URINE YELLOW (YELLOW); GLUCOSE, URINE (UA) NEGATIVE (NEGATIVE); KETONES,URINE NEGATIVE (NEGATIVE); LEUKOCYTE ESTERASE ,URINE SMALL (NEGATIVE); NITRATE,URINE NEGATIVE (NEGATIVE); OCCULT BLOOD,URINE NEGATIVE (NEGATIVE); PROTEIN,URINE NEGATIVE (NEGATIVE); UROBILINOGEN,URINE 0.2 mg/dL (0.2-1.0)
[2022-05-28 22:27] LABS: HCG,QUALITATIVE URINE NEGATIVE (NEGATIVE)
[2022-05-28 22:29] LABS: CREATININE 0.6 mg/dL (0.5-1.5); POTASSIUM 3.2 mmol/L (3.5-5.1)
[2022-05-28 22:34] LABS: ALBUMIN 3.9 g/dL (3.5-5.0); TOTAL PROTEIN, SERUM 7.6 g/dL (6.0-8.3)
[2022-05-28 22:39] LABS: BACTERIA,URINE Few /HPF (None Seen); RBC,URINE 0-1 /HPF (0-1)
[2022-05-28] MEDS ORDERED: ACETAMINOPHEN 325 MG TAB ONE (22:53)
[2022-05-28 23:00] LABS: AMPHET/METH SCREEN,URINE NEGATIVE (NEGATIVE); BARBITURATE SCREEN, URINE NEGATIVE (NEGATIVE); BENZODIAZEPINES SCREEN,URINE NEGATIVE (NEGATIVE); CANNABINOID SCREEN,URINE NEGATIVE (NEGATIVE); COCAINE SCREEN,URINE NEGATIVE (NEGATIVE); OPIATE SCREEN,URINE NEGATIVE (NEGATIVE); PHENCYCLIDINE SCREEN,URINE NEGATIVE (NEGATIVE)
[2022-05-28] MEDS ORDERED: POTASSIUM BICARB/CIT AC 25 MEQ TABLET.EFF PO ONE (23:30)
[2022-05-29] MEDS ORDERED: LABETALOL 20MG SYG IV ONE ×2 (00:08→02:00)
[2022-05-29] MEDS ORDERED: HYDROXYZINE 25 MG TABLET ONE (01:09)
[2022-05-29] MEDS ORDERED: ACETAMINOPHEN 325 MG TAB PO ONE (02:00)
[2022-05-29] MEDS ORDERED: HYDROXYZINE 25 MG TABLET PO ONE (02:00)
[2022-05-29 02:57] VITALS: BP 140/99
[2022-05-29] MEDS ORDERED: LISI1TAB51 PO (03:17)
== END 2022-05-29 03:37 | disposition home or self-care (01) ==
LOC: EDH 21:46
DX: I10 Essential (primary) hypertension (principal); F43.10 Post-traumatic stress disorder, unspecified; F41.9 Anxiety disorder, unspecified; F17.200 Nicotine dependence, unspecified, uncomplicated; Z79.899 Other long term (current) drug therapy
CPT/HCPCS: 36415; 71045; 80053; 80305; 81001; 81025; 83735; 84484; 85025; 93005; 96374

== ENCOUNTER 2022-07-10 16:20 | Emergency (ER) | payer OTHER ==
[~2022-07-10] VITALS: Ht 152.4 cm; Wt 48.5 kg
[~2022-07-10 16:20] MED LIST changes: +LISI1TAB51 PO
[2022-07-10] MEDS ORDERED: NIFEDIPINE 10 MG CAP PO ONE (17:00)
[2022-07-10] MEDS ORDERED: HYDR-4153 PO (17:07)
[2022-07-10] MEDS ORDERED: LISI1TAB51 PO (17:07)
[2022-07-10 17:59] VITALS: BP 161/89
== END 2022-07-10 18:00 | disposition home or self-care (01) ==
LOC: EDH 16:20
DX: I10 Essential (primary) hypertension (principal); F32.A Depression, unspecified; F41.9 Anxiety disorder, unspecified; Z76.0 Encounter for issue of repeat prescription; F17.200 Nicotine dependence, unspecified, uncomplicated; Z79.899 Other long term (current) drug therapy

== ENCOUNTER 2025-02-25 09:29 | Emergency (ER) | payer SELFPAY ==
[~2025-02-25] VITALS: Ht 152.4 cm; Wt 49.9 kg
[~2025-02-25 09:29] MED LIST changes: -HYDR-4153 PO; +HYDR25TA67 PO; -NIFE10 PO; +NIFE10CA60 PO
[2025-02-25] MEDS ORDERED: IBUP-2070 PO (10:19)
[2025-02-25] MEDS ORDERED: CLIN-141 PO (10:19)
--- NOTE | 2025-02-25 10:20 | ERN ---
ED Note History of Present Illness Stated Complaint: DENTAL CARRIES UPPER FACIAL SWELLING Chief Complaint: Dental Problem Time Seen by MD: 10:03 Dictation: Patient is a 29-year-old female here with mild facial swelling and multiple dental caries she has had for several years. She said they have gotten worse over the last several weeks however she has no insurance and has not been able to go to the dentist. She states she is in here today for a work excuse and some antibiotics, states her boyfriend is going to be taken her to a dentist in the next several days for treatment. No fever no chills no nausea vomiting Allergies: Coded Allergies: No Known Drug Allergies (Unverified Allergy, Unknown, 10/15/15) Home Meds Active Scripts Ibuprofen (Ibuprofen) 600 Mg Tablet, 600 MG PO Q6H PRN for PAIN, #30 TAB Prov:ASAEL DE OLIVEIRA NP 02/25/25 Clindamycin HCl (Clindamycin HCl) 300 Mg Capsule, 1 CAP PO QID for 10 Days, #40 CAP 0 Refills Prov:ASAEL DE OLIVEIRA NP 02/25/25 Hydralazine HCl (Hydralazine HCl) 25 Mg Tablet, 25 MG PO BID, #60 TAB Prov:VLAD BEAL 07/10/22 Lisinopril/Hydrochlorothiazide (Lisinopril-Hctz 20-12.5 mg Tab) 1 Each Tablet, 1 EACH PO DAILY, #30 TAB Prov:VLAD BEAL 07/10/22 Lisinopril/Hydrochlorothiazide (Lisinopril-Hctz 20-12.5 mg Tab) 1 Each Tablet, 1 EACH PO DAILY, #30 TAB 0 Refills Prov:JOSE PERRY MD 05/29/22 Nifedipine (Nifedipine) 10 Mg Cap, 10 MG PO BID for SBP > 180 MMHG, #30 CAP Prov:ONI ALFARO MD 05/09/22 Acetaminophen with Codeine (Acetaminophen-Cod #3 Tablet) 1 Each Tablet, 1 EACH PO BID PRN for PAIN LEVEL 7 TO 10 for 5 Days, #10 TAB 0 Refills Prov:AVI ALVAREZ 05/05/22 Lisinopril (Lisinopril) 10 Mg Tablet, 10 MG PO DAILY for 30 Days, #30 TAB 1 Refill Prov:AVI ALVAREZ 05/05/22 Hydralazine HCl (Hydralazine HCl) 25 Mg Tablet, 25 MG PO BID for 30 Days, #60 TAB 1 Refill Prov:AVI ALVAREZ O FLIGHT KITCHEN MANAGER 05/05/22 Reported Medications Trazodone HCl (Trazodone HCl) 100 Mg Tablet, 100 MG PO HS, TAB 05/02/22 Gabapentin (Neurontin) 100 Mg Capsule, 200 MG PO BID, CAP 05/02/22 Duloxetine HCl (Cymbalta) 60 Mg Capsule.dr, 60 MG PO DAILY, CAP 05/02/22 Past Medical History Past Medical History: Anxiety, Depression, Hypertension Additional Past Medical Hx: DENTAL CARRIES Surgical History: Other, None Surgical History Other: TUBAL LIGATION Family History: Negative Social History: Smokers, Drugs, Other History: Not Applicable RN Note Reviewed/Agreed w/PFSH: Yes Review of System Dictation CONSTITUTIONAL: Negative except for HPI HEAD/FACE: Negative except for HPI EENT: Negative except for HPI facial swelling with multiple dental caries and poor dentition RESPIRATORY: Negative except for HPI GASTROINTESTINAL/ABDOMINAL: Negative except for HPI GENITOURINARY: Negative except for HPI MUSCULOSKELETAL: Negative except for HPI INTEGUMENTARY: Negative except for HPI NEUROLOGICAL/PSYCH: Negative except for HPI HEMATOLOGIC/LYMPHATIC: Negative except for HPI All Systems Negative, Except as noted above. 13 point review of systems assessed and all negative except for above. Initial Vital Sign VS Vital Signs Date Time Temp Pulse Resp B/P (MAP) Pulse Ox O2 Delivery O2 Flow Rate FiO2 02/25/25 09:30 98.4 99 14 177/121 97 Room Air 0 02/25/25 10:56 21 Physical Exam Dictation Vital Signs reviewed General Appearance: Alert, oriented x 3, no acute distress, well developed, nourished. Head and Face: non-traumatic. Eyes: PERRL, pink conjunctivas, eyelid no trauma, anterior chamber with arcus senilis. Ears: Pinnas intact and no signs of trauma or erythema ear canals clear and no discharge TM no erythema Nose: No discharge, no bleeding. Oropharynx: Poor dentition with multiple dental caries noted. Multiple caries noted to tooth number six seven and eight mild gingival erythema , no abscesses noted, mucous membrane moist Neck: Supple, non-tender, no thyromegaly, no masses, no JVD, no bruits Breast:Deferred Chest:No tenderness, no crepitus, no paradoxical movement, no retractions Lungs:Clear, well-ventilated, symmetric, no rales, no wheezing, no rhonchi, no stridor, good breath sounds bilaterally Heart: Regular rate, regular rhythm, no murmur, no gallops Vascular: no peripheral edema, Abdomen: Soft, positive bowel sounds, nondistended, no guarding, nontender, no rebound, no masses no hepatomegaly, no splenomegaly, no Erickson's sign, no hernias. Rectal: Deferred Genital: Deferred Neurological: Normal speech, motor function intact, sensory function intact Musculoskeletal: Neck nontender, full range of motion, back nontender, full range of motion, Extremities: nontender, full range of motion Skin: Color pink, dry, no turgor, no rash, no lacerations, no abrasions, no contusions. Lymphatic: Deferred Results (Laboratory/Radiology) Labs Reviewed?: Yes ED Course ED Course Orders Procedure Category Date Status Time Acetaminophen 500mg PHA 02/25/25 Complete Tab (Tylenol 500mg T 10:30 Current Medications Medications (Trade) Dose Ordered Sig/Maggie Route PRN Reason Start Time Stop Time Status Last Admin Dose Admin Acetaminophen (TYLenol 500MG TAB) 1,000 mg ONCE ONCE PO 02/25/25 10:30 02/25/25 10:31 DC 02/25/25 10:42 Vital Signs Date Time Temp Pulse Resp B/P (MAP) Pulse Ox O2 Delivery O2 Flow Rate FiO2 02/25/25 10:56 99.0 90 20 134/87 98 Room Air* 0 21 02/25/25 09:30 98.4 99 14 177/121 97 Room Air 0 1015/no labs or imaging indicated. Patient will be given analgesia, discharged home with clindamycin and ibuprofen due to history of tubal ligation Told to keep her appointment with her dentist as soon as possible Medical Decision Making MDM Medical decision-making based on empiric treatment for dental caries And infection. Patient given acetaminophen for pain Discharged home with clindamycin and told to keep her appointment with her dentist next week DX & DISP Disposition: Discharge Departure Impression: Primary Impression: Dental caries extending into pulp Additional Impression: Dentalgia Condition: Stable Scripts Ibuprofen (Ibuprofen) 600 Mg Tablet 600 MG PO Q6H PRN for PAIN, #30 TAB Prov: RHEINER,ASAEL P PANEL EDGE SEALER 02/25/25 Clindamycin HCl (Clindamycin HCl) 300 Mg Capsule 1 CAP PO QID for 10 Days, #40 CAP 0 Refills Prov: ASAEL DE OLIVEIRA PANEL EDGE SEALER 02/25/25 Additional Instructions: Follow-up with primary care provider in 1 to 2 days. Take medications as directed here in the emergency room. Okay to continue home medications unless otherwise discussed during your visit in the emergency room today. Return to your nearest emergency room if symptoms worsen or if there is no improvement. Call 911 if you need immediate assistance. Take Tylenol or Motrin over -the-counter as needed and if no contraindications are present. Increase oral hydration. A wound culture or urine culture was ordered here in the emergency room department please follow-up with primary care provider and advise them to get repeat ports from our facility. If you had any Cristi wrap/splints that were applied here, please do not remove them until you see your primary care or specialty. Take antibiotics as directed until gone. Start antibiotic dosing with two capsules the 1st dose then take one capsule every 6 hours as directed until gone. Take ibuprofen as needed for fever pain with food. See your dentist for follow up and management. Referrals: SELF,REFERRAL (PCP) Time of Disposition: 10:19 I have reviewed the case, and I agree with, Diagnosis and Plan ASAEL DE OLIVEIRA NP Feb 25, 2025 10:20 KHRIS AMARO DO Feb 25, 2025 13:55
--- NOTE | 2025-02-25 10:30 | NUR ---
PT MOVED INTO INTERNAL WAITING AREA AT THIS TIME FOR MEDICATION PASS AND DC INSTRUCTIONS.
[2025-02-25] MEDS: acetaMINOPHEN 500 MG TABLET PO ONE (10:42)
[2025-02-25 10:56] VITALS: BP 134/87; PULSE 90; RESP 20; TEMP 98.9; O2SAT 98
== END 2025-02-25 10:57 | disposition home or self-care (01) ==
LOC: EDH 09:29
DX: K02.9 Dental caries, unspecified (principal); K08.89 Other specified disorders of teeth and supporting structures; F41.9 Anxiety disorder, unspecified; F32.A Depression, unspecified; I10 Essential (primary) hypertension; F17.200 Nicotine dependence, unspecified, uncomplicated; Z79.899 Other long term (current) drug therapy; Z98.51 Tubal ligation status
CPT/HCPCS: 99283